=== PATIENT | female | born 1950 | race Caucasian/White ===

== ENCOUNTER 2017-05-19 11:00 | Inpatient (IN) | payer MEDICARE, OTHER ==
[~2017-05-19] VITALS: Ht 160 cm; Wt 77.4 kg
--- NOTE | ~2017-05-19 | OR ---
PATIENT'S NAME: MADHURI [facility] AGE: 66 Y [address] ROOM: [place] [address] LOCATION: [facility] ADMIT DATE: 06/02/2017 OR/Procedure Report DISCHARGE DATE: FAMILY PHYSICIAN: Flora Bauer APRN ATTENDING PHYSICIAN: CLAUDIO MUNOZ SURGEON: Claudio Munoz MD DIRECTOR MARKET RESEARCH: 1. VIVIAN Godwin. 2. Landry Jimenez CST/EMERGENCY SERVICES DISPATCHER. DATE OF PROCEDURE: 06/02/2017 PREOPERATIVE DIAGNOSIS: Degenerative joint disease, right knee. POSTOPERATIVE DIAGNOSIS: Degenerative joint disease, right knee. OPERATION: Right total knee arthroplasty with computer navigation. ANESTHESIA: Spinal anesthesia plus adductor canal block plus periarticular local anesthesia (ropivacaine with epinephrine and Toradol). ESTIMATED BLOOD LOSS: Less than 10 mL. DRAIN: None. SPECIMEN: None. COMPLICATIONS: None. IMPLANT SYSTEM: [place] [employer]. 1. Size 4 right posterior stabilized femoral component. 2. Size 3 universal modular tibial baseplate. 3. A 9 mm posterior stabilized size 3 X3 tibial polyethylene insert. 4. A 29 mm asymmetric X3 patellar component. INDICATIONS FOR SURGERY: Aminata Duncan is a 66-year-old female who presents with advanced right knee degenerative joint disease and associated severely compromised activities of daily living. The patient has decided to proceed with knee replacement after having been thoroughly counseled regarding the associated risks, benefits, and limitations. We have specifically reviewed the risks and implications of infection, deep venous thrombosis, pulmonary embolism, mortality, neurovascular complications, blood transfusion (and associated potential for disease transmission or transfusion reaction), stiffness, instability, mechanical deterioration of the components (due to wear and or loosening), and the potential need for revision. We have also emphasized the importance of active involvement and compliance with post- operative physical therapy as a means of optimizing range of motion and PATIENT'S NAME: RYANNMara [facility] AGE: 66 Y [address] ROOM: [place] [address] LOCATION: [facility] ADMIT DATE: 06/02/2017 OR/Procedure Report DISCHARGE DATE: FAMILY PHYSICIAN: Flora Bauer APRN ATTENDING PHYSICIAN: CLAUDIO MUNOZ functional recovery. Informed consent has been granted. DESCRIPTION OF PROCEDURE: The patient was positioned supine after administration of anesthesia and prophylactic antibiotics. A well-padded pneumatic tourniquet was placed around the right proximal thigh, and the right lower extremity was prepped and draped with vigilant sterile technique. The patient's name as well as the intended operative side and procedure were confirmed with a verbal time-out involving myself, the circulating nurse, the scrub nurse, and the anesthesiologist. Examination under anesthesia demonstrated well-healed inferomedial and inferolateral arthroscopy portal scars. There were no active skin lesions or masses. There was a mild effusion. There was no erythema. There was no abnormal warmth. Range of motion under anesthesia was from a 2-degree flexion contracture to 130 degrees of flexion. There was no ligamentous insufficiency. The right lower extremity was elevated and exsanguinated with an Esmarch wrap, and the pneumatic tourniquet was inflated to 300mmHg. The knee was approached through a longitudinal midline incision. A medial parapatellar arthrotomy was performed and the patella was everted. Examination of the joint space demonstrated a moderate amount of benign-appearing translucent synovial fluid. There was a 1 cm cartilaginous loose body at the anterior aspect of the medial compartment. There was significant fibrosis of the infrapatellar fat pad. The fibrotic portion of the infrapatellar fat pad was excised. The cruciate ligaments were intact. There were small osteophytes at the intercondylar notch. There were large osteophytes at the medial and lateral femoral condyles and the medial tibial plateau. The lateral meniscus was intact. There was complex degenerative tearing involving the midportion of the medial meniscus. There was full-thickness loss of articular cartilage involving 80% of the medial femoral condyle as well as a 1.5 cm diameter region at the central aspect of the femoral trochlea, as well as a 1 x 2 cm diameter region at the apex and medial facet of the patella, as well as a 1.5 x 2 cm region at the anteromedial aspect of the medial tibial plateau. There was a 1 cm subchondral cyst at the posterolateral aspect of the medial tibial plateau. There was a 2 cm diameter region of high-grade partial-thickness articular cartilage loss at the posteromedial aspect of the lateral tibial plateau. There was a 1 cm diameter region of full-thickness articular cartilage loss at the central aspect of the lateral femoral condyle. Remnants of the menisci and cruciate ligaments were excised. The [place] computer navigation femoral tracker was pinned in place at the distal aspect of the femoral trochlea. Absence of motion between the femur and the tracking device was confirmed manually and visually. Femoral osseous landmarks were PATIENT'S NAME: AMINATA DUNCAN [facility] AGE: 66 Y [address] ROOM: [address] [address] LOCATION: [facility] ADMIT DATE: 06/02/2017 OR/Procedure Report DISCHARGE DATE: FAMILY PHYSICIAN: Flora Bauer APRN ATTENDING PHYSICIAN: CLAUDIO MUNOZ in order to calibrate the computer navigation system. Landmarks included the center of rotation of the ipsilateral hip, the center-point of the distal femur, the femoral AP axis, 57 points on the medial femoral condyle articular surface, and 57 points on the lateral femoral condyle articular surface. The [place] computer navigation system was subsequently utilized to position the distal femoral resection block such that the distal femoral resection was performed perfectly perpendicular to the femoral mechanical axis. The distal femoral resection was performed with a [employer] oscillating saw. The [place] computer navigation tibial tracker was pinned in place at the anterior aspect of the tibial plateau. Absence of motion between the tibia and the tracking device was confirmed manually and visually. Tibial osseous landmarks were obtained in order to calibrate the computer navigation system. Landmarks included the center-point of the tibial plateau, the AP tibial axis, 57 points on the medial tibial plateau articular surface, 57 points on the lateral tibial plateau articular surface, the medial malleolus, and the lateral malleolus. The [place] computer navigation system was subsequently utilized to position the proximal tibial resection block such that the proximal tibial resection was performed perfectly perpendicular to the tibial mechanical axis. The proximal tibial resection was performed with a [employer] oscillating saw. Perpendicularity of the tibial resection with respect to the tibial shaft axis was reconfirmed by inserting a spacer- block attached to an extramedullary guide malinda. External rotation of the anterior and posterior femoral resections was set parallel to the epicondylar axis and carefully adjusted in order to create a rectangular flexion gap. The box resection was performed with a reciprocating saw. Anterior and posterior chamfer resections were performed with the oscillating saw. Posterior condyle osteophytes were excised with an osteotome. All other osteophytes were excised with a rongeur. Resection of all remnants of the menisci was reconfirmed. Flexion and extension gaps were confirmed to be symmetric and well balanced with a spacer-block technique. The patella resection was performed with an oscillating saw such that the composite thickness of the reconstructed patella was equivalent to the thickness of the [place] patella. Patellar tracking was optimal, and there was no need for a lateral retinacular release. All trial components were removed and all prepared osseous surfaces were thoroughly irrigated with pulsatile saline lavage and dried prior to cementing all three components in a single stage using [place] [employer]plex cement containing pre-mixed tobramycin. All extruded excess cement was removed. The entire joint space was thoroughly inspected and thoroughly irrigated with bacteriostatic pulsatile saline lavage to assure that there was no residual PATIENT'S NAME: AMINATA DUNCAN [facility] AGE: 66 Y [address] ROOM: [address] [address] LOCATION: [facility] ADMIT DATE: 06/02/2017 OR/Procedure Report DISCHARGE DATE: FAMILY PHYSICIAN: Flora Bauer APRN ATTENDING PHYSICIAN: CLAUDIO MUNOZ debris of any sort. Final range of motion was from full extension (with no passive hyperextension) to 130 degrees of flexion. Patella tracking was reconfirmed to be optimal. There was excellent anteroposterior stability at 90 degrees of flexion. There was 0 mm of medial lift-off to valgus stress in full extension. There was 1 mm of lateral lift-off to varus stress in full extension. The arthrotomy was closed with multiple simple and [id number] interrupted #1 Vicryl. Subcutaneous tissues were thoroughly re-irrigated with bacteriostatic pulsatile saline lavage. Subcutaneous tissues were re- approximated with simple buried interrupted #0 Vicryl sutures. The skin was closed with simple buried interrupted 2-0 Vicryl sutures followed by surgical arlene. The dressing consisted of Xeroform gauze, 4x4 gauze, ABD pads and two 6-inch Eduardo Wraps. There were no intra-operative complications. It should be noted that the physician's server assistant played an active, integral role throughout this entire operation. By providing expert retraction, they greatly facilitated and expedited safe and effective exposure of the distal femur, proximal tibia and patella for preparation and implantation of the components. They were also actively involved in the patient's positioning, prepping and draping, as well as wound closure. MD SUNNI MORGAN/suzette /[id number] d: 06/02/17 1154 t: 06/06/17 2220, OPERATIVE SUMMARY
--- NOTE | ~2017-05-19 | DS ---
PATIENT'S NAME: SURJIT DHALIWAL [facility] AGE: 66 Y [address] ROOM: [place] [address] LOCATION: [facility] ADMIT DATE: 06/02/2017 Discharge Summary DISCHARGE DATE: 06/04/2017 FAMILY PHYSICIAN: Flora Bauer APRN ATTENDING PHYSICIAN: Jasiel Johnson PRIMARY DIAGNOSIS: Degenerative joint disease of the right knee. SECONDARY DIAGNOSES: 1. History of breast cancer. 2. Hypertension. 3. Depression. 4. Mild renal insufficiency. 5. Hyperlipidemia. 6. Type 2 diabetes mellitus. 7. Osteopenia. 8. History of cervical spondylosis with paresthesias. 9. Fatty liver disease. PROCEDURE PERFORMED: Right total knee arthroplasty. HISTORY: The patient is a 66-year-old female, who presents with advanced right knee degenerative joint disease and associated severely compromised activities of daily living. The patient has decided to proceed with total knee arthroplasty after having been thoroughly counseled regarding the risks, benefits, limitations, and alternatives. Please refer to the outpatient clinic notes and admission history and physical for this patient. HOSPITAL COURSE: The patient underwent a right total knee arthroplasty on 06/02/2017 without complications. Spinal anesthesia plus adductor canal block, plus periarticular local anesthesia was utilized. The patient received 24 hours of perioperative prophylactic antibiotics and remained hemodynamically stable, neurovascularly intact throughout the entire hospital course. The postoperative prophylactic deep venous thrombosis prophylaxis consisted of aspirin 325 mg, early mobilization and pneumatic compression devices. Daily physical therapy for gait training, transfer training, range of motion and quadriceps isometric exercises were received. The patient progressed well in physical therapy. On the date of discharge, 06/04/2017, the incision at the knee was healing well and showed no signs of infection. DISPOSITION: Home. DISCHARGE ACTIVITY: The patient is to bear weight as tolerated with range of motion and quadriceps isometric exercises as instructed. The operative extremity is to be elevated at least 90% of the day. There is to be sterile PATIENT'S NAME: MADHURI [facility] AGE: 66 Y [address] ROOM: [place] [address] LOCATION: [facility] ADMIT DATE: 06/02/2017 Discharge Summary DISCHARGE DATE: 06/04/2017 FAMILY PHYSICIAN: Flora Bauer APRN ATTENDING PHYSICIAN: Jasiel Johnson 4x4 gauze dressings to the incision daily. Dr. Johnson is to be notified immediately if there is any increased pain, fevers, chills, erythema, or drainage. DISCHARGE MEDICATIONS: 1. Aspirin 325 mg 1 tablet p.o. daily for 30 days for postoperative DVT prophylaxis. 2. Percocet 5/325 mg 1 to 2 tablets p.o. every 4 hours p.r.n. for pain. 3. Diazepam 5 mg 1/2 to 1 tablet p.o. every 6 hours p.r.n. for muscle spasms. She was then instructed to continue all her other pre-admission medications as instructed by her internal medicine physician. FOLLOWUP: Followup appointment is to be with Dr. Johnson's office on 06/09/2017. TYLOR COVINGTON PA-C FOR MD ИРИНА MORGAN/suzette /[id number] d: t: 06/06/17 0950, DISCHARGE SUMMARY
[2017-05-19] MEDS ORDERED: LOTENSIN10 MG PO (17:20)
[2017-05-19] MEDS ORDERED: PAXIL20 MG PO (17:21)
[2017-05-19] MEDS ORDERED: ZOCOR10 MG PO (17:21)
[2017-05-19] MEDS ORDERED: TRIAMTERENE-HC1 EAC1 PO (17:21)
[2017-05-19] MEDS ORDERED: RESTASIS1 EACH OPHTH (17:22)
[2017-05-19] MEDS ORDERED: COZAAR100 MG PO (17:22)
[2017-05-19] MEDS ORDERED: THERA-VITE W/ B1 TAB PO (17:22)
[2017-05-19] MEDS ORDERED: NORVASC5 MG PO (17:22)
[2017-05-19] MEDS ORDERED: LYRICA 50MG CAP50 MG PO (17:23)
[2017-05-19] MEDS ORDERED: ZANTAC (NON-FO150 MG PO (17:23)
[2017-05-19] MEDS ORDERED: ULTRAM50 MG PO (17:24)
--- NOTE | 2017-06-02 16:49 | NUR ---
Significant Event:Received from PACU at 1015. Routine VS. Up to commode/chair. Voided x1. Dressing dry and intact to rt knee. CSM WNL. Denies pain. O2 at 1.5L per nasal cannula. Hx bilateral mastectomy. BP taken in left lower leg. Follow up:Watch ETOH withdraw.
--- NOTE | 2017-06-02 16:57 | NUR ---
SPOKE TO PATIENT REGARDING CM AND OUR ROLE. PATIENT LIVES IN OWN HOME WITH SPOUSE SHE IS PLANNING ON RETURNING HOME ONCE SHE IS READY FOR DISCHARGE WITH HELP FROM HER SPOUSE. SHE HAS ALL HER DEM. PATIENT DOES NOT ANTICIPATE DISCHARGE NEEDS AT THIS TIME.
--- NOTE | 2017-06-03 04:07 | NUR ---
Shift Summary: Patient can ambulate all the way to the BR with standby assist. Has a strong pedal pulse per Doppler. Unable to feel pulse. Patient tolerating ADA diet well. Voiding without difficulty. Accuchecks AC&HS with mild SS. Blood sugar at bedtime was 277. Received 4units Insulin. Patient is bilateral mastectomy. Taking B/P's in lower leg. Please monitor patient for Alcohol withdrawal. Drinking about 6 shots of Vodka a night at home. No signs of withdrawal this shift.
[2017-06-03 05:47] LABS: HEMATOCRIT 35.3 % (33.0-46.0); HEMOGLOBIN 12.2 g/dL (10.0-15.0)
--- NOTE | 2017-06-03 17:26 | NUR ---
Pt alert and oriented. She has ambulated to bathroom several times 1 asst standby. Up recliner all shift and amb in schuler and to joint class. CSM WNL except pedal pulse needs doppled. Pt dressing dry and intact and ice to knee. Pt uses IS at 1999. No ETOH withdrawal noted. Pt has had percocet po x3, last at 1510 and IV dilaudid x1 at 1510. Pt thinks block wearing off after class. Pt plans to go home tomorrow with asst of spouse. Take BP on leg as bilat mastectomy in the past. Accuchecks 138 and 124 so far this shift.
--- NOTE | 2017-06-04 02:56 | NUR ---
Shift Summary: Patient can ambulate well with standby assist/walker. Good pain control with 2 percocet at a time and Valium q 6hr. Both last given at 0133. Patient tolerating Regular diet well. Voiding without difficulty. Is on accuchecks due to recent steriod injection that causing flucuating blood sugars. Patient has not had any alcohol withdrawal S&S. She will go home today.
[2017-06-04] MEDS ORDERED: ECOTRIN325 MG PO (11:33)
[2017-06-04] MEDS ORDERED: COLACE100 MG PO (11:35)
[2017-06-04] MEDS ORDERED: MIRALAX17 GM PO (11:38)
[2017-06-04] MEDS ORDERED: VALIUM5 MG PO (11:40)
[2017-06-04] MEDS ORDERED: PERCOCET 5-3251 EACH PO (11:43)
--- NOTE | 2017-06-04 13:58 | NUR ---
Discharge instructions reviewed with patient and her . Reviewed all medications, s/s infection, when to call the doctor, dvt prevention, care of dressing, ice/elevate/dale hose,f/u appt. etc. Refer to discharge instructions for details. All belongings, including home eye drops, sent with patient. To front door per w/c with jamison
== END 2017-06-04 12:45 | disposition disaster alternative care site (69) | DRG 470 ==
LOC: G3N 06-02 05:21
PROVIDERS: ADMIT Orthopaedic Surgery
PROC: 0SRC0J9 Replacement of Right Knee Joint with Synthetic Substitute, Cemented, Open Approach (ICD-10-PCS; principal; 2017-06-02)
PROC: 8E0YXBZ Computer Assisted Procedure of Lower Extremity (ICD-10-PCS; 2017-06-02)
DX: M17.11 Unilateral primary osteoarthritis, right knee (principal); N17.9 Acute kidney failure, unspecified; E11.69 Type 2 diabetes mellitus with other specified complication; E83.52 Hypercalcemia; K76.0 Fatty (change of) liver, not elsewhere classified; F32.9 Major depressive disorder, single episode, unspecified; I10 Essential (primary) hypertension; M85.80 Other specified disorders of bone density and structure, unspecified site; R20.9 Unspecified disturbances of skin sensation; E78.5 Hyperlipidemia, unspecified; Z85.3 Personal history of malignant neoplasm of breast
CPT/HCPCS: C1713; C1776; G0008; J0690; J1170; J1885; J2001; J2250; J2300; J2795; J7120

== ENCOUNTER → 2017-05-22 | Outpatient (CLI) | payer MEDICARE, OTHER ==
[~2017-05-22] MED LIST: COLACE100 MG PO; COZAAR100 MG PO; ECOTRIN325 MG PO; LOTENSIN10 MG PO; LYRICA 50MG CAP50 MG PO; MIRALAX17 GM PO; NORVASC5 MG PO; PAXIL20 MG PO; PERCOCET 5-3251 EACH PO; RESTASIS1 EACH OPHTH; THERA-VITE W/ B1 TAB PO; TRIAMTERENE-HC1 EAC1 PO; ULTRAM50 MG PO; VALIUM5 MG PO; ZANTAC (NON-FO150 MG PO; ZOCOR10 MG PO
== END ==
LOC: GNJRC 10:36
DX: Z01.818 Encounter for other preprocedural examination (principal); M17.11 Unilateral primary osteoarthritis, right knee; Z79.899 Other long term (current) drug therapy